=== PATIENT | female | born 2005 | race Hispanic/Latino ===

== ENCOUNTER 2024-10-30 19:29 | Emergency (ER) | payer OTHER ==
[~2024-10-30] VITALS: Ht 152.4 cm; Wt 69.0 kg
[2024-10-30] MEDS ORDERED: AMOXICILLIN TRIHYDRATE 500 MG/CAP PO ONE (19:50)
[2024-10-30] MEDS ORDERED: KETOROLAC TROMETHAMINE 30 MG/ML SDV IM ONE (19:50)
[2024-10-30] MEDS ORDERED: AMOXICILLIN500 M2 PO (19:54)
[2024-10-30 20:31] VITALS: BP 119/67
== END 2024-10-30 20:35 | disposition home or self-care (01) | DRG 159 ==
LOC: ED 19:29
DX: K04.7 Periapical abscess without sinus (principal); F17.290 Nicotine dependence, other tobacco product, uncomplicated